=== PATIENT | male | born 1995 | race Caucasian/White ===

== ENCOUNTER 2017-03-07 20:48 | Emergency (ER) | payer SELFPAY ==
[~2017-03-07] VITALS: Ht 177.8 cm; Wt 68.0 kg
[2017-03-07 20:50] VITALS: BP 124/74
[2017-03-07] MEDS ORDERED: IBUPROFEN 400 MG TABLET ONE (20:51)
[2017-03-07] MEDS ORDERED: ACETAMINOPHEN ES 500 MG TABLET ONE (20:51)
[2017-03-07] MEDS ORDERED: ACETAMINOPHEN ES 500 MG TABLET PO ONE (21:00)
[2017-03-07] MEDS ORDERED: IBUPROFEN 400 MG TABLET PO ONE (21:00)
== END 2017-03-07 21:29 | disposition home or self-care (01) ==
LOC: ER 20:51
DX: J11.1 Influenza due to unidentified influenza virus with other respiratory manifestations (principal); F17.200 Nicotine dependence, unspecified, uncomplicated
CPT/HCPCS: 99283; 99406; A4606; Z7610